=== PATIENT | male | born 1950 | race Caucasian/White ===

== ENCOUNTER 2017-02-11 08:55 | Observation (INO) | payer MEDICARE ==
[~2017-02-11] VITALS: Ht 182.9 cm; Wt 95.3 kg
--- NOTE | ~2017-02-11 | HP ---
ADMIT: 02/11/2017 RM/LOC: [facility] MR#: [id number] [address] [place] [id number] CARRI MONTELONGO [address] [place] [address] Pre-OP History and Physical SEX: M AGE: 66 : 1950 Corrected: 02/11/2017 1055 walter DATE OF SERVICE: REASON FOR ADMISSION: Acute cholecystitis. HISTORY OF PRESENT ILLNESS: This patient is a 66-year-old male, who came into the [facility] yesterday. Thursday evening, he started having abdominal pain, throwing up, not feeling well. Never really had anything like this before. Workup, CAT scan, then ultimately ultrasound basically shows acute cholecystitis and cholelithiasis, I have discussed with him, at this point, his white count is up, he has a Faith's sign, fever, needs his gallbladder done now rather than later, and the plan is to be taken to the operating room as soon as they give me some time for a laparoscopic, possible open cholecystectomy. I have discussed the procedure with him and his , what it entails, risks, benefits, possible complications, and alternatives. They understand and wish to proceed. PAST MEDICAL HISTORY: Significant for some GERD and that is basically it. MEDICATIONS: He takes some Nexium and some vitamins. ALLERGIES: HE LISTS NO MEDICAL ALLERGIES. PAST SURGICAL HISTORY: He has had a surgery of a bunion and hernia as a child. SOCIAL HISTORY: Denies any significant tobacco, alcohol, or illicit drugs. FAMILY HISTORY: No family history. REVIEW OF SYSTEMS: Significant for the HPI and that is it. ADMIT: 02/11/2017 RM/LOC: [facility] MR#: [id number] [address] [place] [id number] CARRI MONTELONGO [address] [place] [address] Pre-OP History and Physical SEX: M AGE: 66 : 1950 PHYSICAL EXAMINATION: GENERAL: He is otherwise alert. He is oriented. He is in no significant distress. HEENT: His sclerae are nonicteric. His extraocular muscles are intact. CHEST: Clear. HEART: Regular rate and rhythm. ABDOMEN: Faith's sign, but no diffuse peritoneal signs. Positive bowel sounds. No other mass or organomegaly. EXTREMITIES: Without any clubbing, cyanosis, or edema. ASSESSMENT AND PLAN: Laparoscopic cholecystectomy. Alfredito Davis MD/ malik JOB #: [id number] CC: Alfredito Davis, Attending Physician Krunal Lizama Family Physician Corrected: 02/11/2017 1055 walter
[2017-02-13] MEDS ORDERED: MOTRIN-DPS800 MG PO (10:22)
[2017-02-13] MEDS ORDERED: LORTAB 7.5-3251 EACH PO (10:22)
[2017-02-13] MEDS ORDERED: TYLENOL EXTRA500 M1 PO (10:23)
--- NOTE | 2017-02-15 19:20 | OR ---
ADMIT: 02/11/2017 RM/LOC: [address] [facility] MR#: [id number] [address] [facility] [address] [place], [place] [id number] JOSÉ MIGUEL MONTELONGOIC Radha [address] [place] [address] Operative/Delivery Room Report SEX: M AGE: 66 : 1950 SURGERY DATE: 02/11/2017 SURGEON: Alfredito Davis MD PREOPERATIVE DIAGNOSIS: Acute cholecystitis. POSTOPERATIVE DIAGNOSIS: Acute cholecystitis. FINAL PATHOLOGY: Pending. PROCEDURE: Laparoscopic cholecystectomy. MOTION PICTURE PROJECTIONIST APPRENTICE: Leonel Don, who was necessary for adequate exposure, retraction, and completion of this case. ANESTHESIA: General endotracheal tube anesthesia. ESTIMATED BLOOD LOSS: 50 mL or less. INDICATION FOR PROCEDURE: Please see my H and P. PROCEDURE IN DETAIL: After the risks, benefits, possible complications, and the alternatives have been explained, and informed consent had been obtained, the patient was taken back to the operating room, underwent general endotracheal tube anesthesia, and the surgical field was prepped and draped in a sterile manner. An infraumbilical incision was made. The Veress needle was inserted. The abdomen was insufflated with CO2. Once there was adequate insufflation, a 5 mm port was placed. The camera was placed through this port site. Under direct visualization, I then placed a 10 mm epigastric and two 5 mm right upper quadrant ports. The gallbladder was identified, but I had to sweep off omentum that was covering it from the acute nature of this and there were areas of small ischemic changes and gangrenous changes of the gallbladder. I drained it just so we could adequately grasp it and then raised it superiorly and anteriorly. Slowly, we cleaned things down and dissected out the cystic duct coming directly off the gallbladder. It was ADMIT: 02/11/2017 RM/LOC: [address] [facility] MR#: [id number] [address] [facility] [address] [place] [phone] CARRI MONTELONGO [address] [place] [address] Operative/Delivery Room Report SEX: M AGE: 66 : 1950 clipped, proximally, distally, and divided, and then behind this, the cystic artery was dissected out, clipped, proximally, distally, and divided. The gallbladder was then removed liver bed using electrocautery and Endo Erin. At one point, even count ran into almost a little abscess there. Once it was fully removed, it was placed in an EndoCatch bag and removed through the epigastric port site. Irrigated, cleaned everything up. Once I had everything adequately cleaned up with good hemostasis, I injected 0.5% Marcaine for pain control. I closed the fascia of the epigastric port site with an 0-Polysorb suture using the suture passer, and then the skin was all closed with 4-0 Monocryl once the ports were all removed. He tolerated it well. He was extubated and taken to recovery room in stable and satisfactory condition. Alfredtio Davis MD/ malik JOB #: [id number] CC: Alfredito Davis, Attending Physician Krunal Lizama, Family Physician
== END 2017-02-12 11:24 | disposition home or self-care (01) ==
LOC: SSS 08:55 → 6PED 12:22
PROVIDERS: ADMIT Surgery
PROC: 0FT44ZZ Resection of Gallbladder, Percutaneous Endoscopic Approach (ICD-10-PCS; principal; 2017-02-11)
DX: K80.00 Calculus of gallbladder with acute cholecystitis without obstruction (principal); K21.9 Gastro-esophageal reflux disease without esophagitis; Z98.890 Other specified postprocedural states; Z79.899 Other long term (current) drug therapy